=== PATIENT | female | born 1940 | race Caucasian/White ===

== ENCOUNTER 2018-06-14 12:39 | Inpatient (IN) | payer OTHER ==
[~2018-06-14 12:39] MED LIST: NA CHLORIDE 0.9% 1,000 ML ONE; RSI MEDICATION KIT IV ONE
[2018-06-14] MEDS ORDERED: ETOMIDATE 20 MG/10 ML VIAL IV ONE (12:40)
[2018-06-14] MEDS ORDERED: SUCCINYLCHOLINE 20 MG/ML (10 ML) IV ONE (12:40)
[2018-06-14] MEDS ORDERED: LEVALBUTEROL 0.63 MG/3 ML NEB ONE (12:50)
[2018-06-14] MEDS ORDERED: PROPOFOL 1,000 MG/100 ML VIAL IV ONE ×2 (13:08→20:20)
[2018-06-14] MEDS ORDERED: NOREPINEPHRINE 4mg/D5W 250mL 4 MG/250 ML BAG IV ONE (13:09)
[2018-06-14] MEDS ORDERED: D5 0.45 NS 1,000 ML IV ONE ×2 (13:09→23:12)
[2018-06-14 13:29] LABS: Absolute Lymphocytes (CBC) 1.8 K/uL (0.7-4.9); Absolute Neutrophil 10.6 K/uL (1.8-8.0); Basophils % 0.4 % (0-1.3); Eosinophils % 0.5 % (0-4.4); Lymphocytes % 13.4 % (15.3-44.8); MCH 28.6 pg (27.0-35.0); MCV 96.6 fL (80-100); MPV 9.5 fL (7.6-11.3); Monocytes % 7.2 % (3.3-12.3); RBC Red Blood Cell Count 3.41 M/uL (3.86-4.86)
[2018-06-14 13:34] LABS: Protime INR 0.94
[2018-06-14 13:53] LABS: ALT/SGPT 9 U/L (12-78); AST/SGOT 11 U/L (15-37); Albumin 3.2 g/dL (3.4-5.0); Alkaline Phosphatase 49 U/L (45-117); BUN Blood Urea Nitrogen 84 mg/dL (7-18); Bicarbonate 32 mmol/L (21-32); Bilirubin Direct < 0.1 mg/dL (0-0.2); Bilirubin Total 0.2 mg/dL (0.2-1.0); CKMB Creatine Kinase MB 1.2 ng/mL (0.3-3.6); Creatine Phosphokinase 35 U/L (26-192); Glucose Level 136 mg/dL (74-106); Lipase 141 U/L (73-393); Protein, Total 6.6 g/dL (6.4-8.2); Sodium Level 141 mmol/L (136-145); Troponin (Emerg Dept Use Only) < 0.02 ng/mL (0.0-0.045)
[2018-06-14 13:54] LABS: Arterial Blood Carboxyhemoglob 1.9 % (0-1.5); Blood O2 Saturation 98.7 % (92-98.5)
[2018-06-14 13:56] LABS: Potassium 5.6 mmol/L (3.5-5.1)
[2018-06-14] MEDS ORDERED: LORazepam 2 MG/ML VIAL ONE (13:57)
[2018-06-14] MEDS ORDERED: MORPHINE 4 MG/ML SYR ONE (13:58)
--- NOTE | 2018-06-14 14:00 | RAD REPORT ---
EXAM DESCRIPTION: CT - Head Brain Wo Cont - 06/14/2018 1:29 pm CLINICAL HISTORY: Unresponsive, intubated, altered mental status COMPARISON: CT study November 2016 TECHNIQUE: Axial 5 mm thick images of the head were obtained without IV contrast. All CT scans are performed using dose optimization technique as appropriate and may include automated exposure control or mA/KV adjustment according to patient size. FINDINGS: No intracranial hemorrhage, mass, edema or shift of mid-line structures. No acute infarcti on changes seen. Mild atrophy and chronic ischemic changes are present similar to comparison. Ventric les are in proportion to any volume loss. NG tube and endotracheal tube are present only partially im aged. Mastoid air cells and visualized portions of the paranasal sinuses are clear. No acute bony findings. IMPRESSION: Mild atrophy and chronic ischemic change similar to comparison. No acute intracranial fi nding.
--- NOTE | 2018-06-14 14:02 | RAD REPORT ---
EXAM DESCRIPTION: RAD - Chest Single View - 06/14/2018 1:18 pm CLINICAL HISTORY: Intubation, unresponsive COMPARISON: November 2016 TECHNIQUE: AP portable chest image was obtained 1304 hours . FINDINGS: Lung volumes are low. Interstitial markings are prominent but not clearly different. Left costophrenic angle blunting is present but not clearly different. Heart size is normal. Left pleural effusion is likely present, small in size. No pneumothorax. No gross bony abnormality seen. No acute aortic finding. Endotracheal tube is in place. Tip is mid aortic arch 2 cm above the reese. NG tube extends below th e diaphragm. IMPRESSION: Shallow inspiration film showing small left pleural effusion. No significant lung parenc hymal process when compared to 2017. ET tube and NG tube in good position.
[2018-06-14 14:03] LABS: Urine Blood 1+ (NEG); Urine Glucose NEGATIVE (NEG); Urine Protein NEGATIVE (NEG); Urine Specific Gravity 1.025 (1.005-1.030); Urine pH 5.5 (5.0-7.0)
--- NOTE | 2018-06-14 14:31 | ER ---
Nurse's Notes [facility] Name: Chiquis Chaparro Age: 78 yrs Sex: Female : 1940 Arrival Date: 06/14/2018 Time: 12:42 Bed 3 Private MD: Diagnosis: Dehydration;Altered mental status, unspecified;Acute respiratory failure Presentation: 06/14 12:45 Presenting complaint: EMS states: Family reports that pt has been very lethargic for ph the past 3 days, reports that pt receives home health for wound care and the home health nurse recommended that she come to the hospital, pt very drowsy upon EMS arrival w/ snoring respirations, 85% on RA, improved to 100% on NRB, pt oriented to person only, family states that pt is normally A\T\O x 4. Transition of care: patient was not received from another setting of care. Onset of symptoms was June 14, 2018. Risk Assessment: Do you want to hurt yourself or someone else? Patient reports no desire to harm self or others. Initial Sepsis Screen: Does the patient meet any 2 criteria? Mean Arterial Pressure (MAP) < 65. Altered Mental Status. Yes Does the patient have a suspected source of infection? Yes:. Care prior to arrival: None. 12:45 Method Of Arrival: EMS: [facility] ph 12:45 Acuity: EZEQUIEL 2 ph Historical: - Allergies: 13:35 Morphine; ph 13:35 OPIOID ANALGESICS; ph 13:35 tramadol; ph - PMHx: 13:35 aortic valve stenosis; CHF; COPD; Diabetes - NIDDM; Hypertension; Hypothyroidism; ph neuropathy; SVITLANA; Urinary incontinence; - PSHx: 13:35 PACE MAKER; Tubal ligation; LEFT ANKLE SX; ph - Immunization history:: Adult Immunizations unknown. - Social history:: Smoking status: unknown. - Ebola Screening: : No symptoms or risks identified at this time. - Unable to obtain history due to: altered mental status, obtunded state. Screenin:40 Abuse screen: Denies threats or abuse. Denies injuries from another. Nutritional ph screening: No deficits noted. Tuberculosis screening: No symptoms or risk factors identified. Fall Risk None identified. Assessment: 12:50 General: Appears uncomfortable, obese, well groomed, Behavior is drowsy, listless. ph Pain:. Neuro: Level of Consciousness is lethargic, listless, Oriented to person, Speech is slurred. Cardiovascular: Capillary refill is sluggish Rhythm is sinus rhythm. Respiratory: Airway is patent Respiratory effort is shallow, weak, Respiratory pattern is tachypnea Breath sounds are diminished in left lower lobe and right lower lobe. GI: Abdomen is round non-distended, obese, Bowel sounds present X 4 quads. : Murry in place to gravity drainage Urine is clear. 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 12:55 Reassessment: ERP at bedside to place central line and intubate pt. ph 13:22 Reassessment: Pt transported to CT via stretcher with RT, nurse, and lab support service tech. hb 13:41 Reassessment: Pt returned from CT. hb 14:04 Reassessment: Patient appears in no apparent distress at this time. Patient and/or ph family updated on plan of care and expected duration. Pain level reassessed. pt remains intubated/sedated, awaiting lab and radiology results. 14:35 Reassessment: SBP 50s, Levophed started at 5mcg/min. hb 14:40 Reassessment: Dr. Lewis and family at bedside. hb 14:59 Reassessment: Pt remains intubated and sedated. Family at bedside. hb 15:30 Reassessment: RT at bedside, FiO2 reduced to 30%. hb 15:45 Reassessment: Pt remains intubated and sedated, AC 14, TV 550, PEEP 5, FiO2 30%. hb Levophed continues at 5mcg/min, propofol 25mcg/kg/min. Admission ordered, awaiting room assignment at this time. 16:00 Reassessment: ER HOLD charting continued in [facility]. hb 19:00 Reassessment: RECD REPORT FROM KARL RN. 78YO HF P/W DECREASED LEVEL OF CONSCIOUSNESS AND bp RESPIRATORY FAILURE. PT ON VENT A/C 14, TV 550, PEEP 5, FIO2 35%, ETT 7.5 \T\ 25CM. R FEM CVC IN PLACE, LEVOPHED \T\ 3MCG, PROPOFOL \T\ 20MCG, D51/2NS \T\ 100. 16FR NGT AND HOME MURRY IN PLACE. 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 REPEAT TROP DUE AT 2100. PT CURRENTLY ICU HOLD, SEE [facility] FOR FURTHER DOCUMENTATION. 06/15 03:45 Reassessment: REPORT TO EDGARDO SOLITARIO. PT TRANSPORTED VIA STRETCHER, REPORT TO EDGARDO SOLITARIO. SEE bp [facility] FOR PREVIOUS DOCUMENTATION. Vital Signs: 06/14 12:45 BP 96 / 39; Pulse 89; Resp 22; Temp 97.6(A); Pulse Ox 91% on R/A; ph 13:00 BP 115 / 51; Pulse 89; Resp 16; Pulse Ox 100% on 15 lpm ETT ambu; ph 13:15 BP 105 / 71; Pulse 87; Resp 16; Pulse Ox 100% on 15 lpm ETT ambu; ph 13:30 BP 168 / 154; Pulse 87; Resp 18; Pulse Ox 100% on 40% FiO2 ETT vent; ph 13:47 BP 142 / 128; Pulse 83; Resp 18; Pulse Ox 99% on 40% FiO2 ETT vent; Weight 79.38 kg; ph 14:10 BP 150 / 110; Pulse 80; Resp 16; Pulse Ox 100% on 40% FiO2 ETT vent; ph 14:30 BP 68 / 50; Pulse 82; Resp 18; Pulse Ox 100% on 40% FiO2 ETT vent; ph 14:45 BP 91 / 74; Pulse 94; Resp 16; Pulse Ox 100% on 40% FiO2 ETT vent; ph 15:00 BP 101 / 62; Pulse 97; Resp 15; Pulse Ox 100% on 40% FiO2 ETT vent; hb 15:15 BP 107 / 87; Pulse 99; hb 15:30 BP 100 / 53; Pulse 98; hb 15:45 BP 107 / 87; Pulse 99; hb 16:00 BP 122 / 77; Pulse 101; Resp 16; Pulse Ox 100% on 30% FiO2 ETT vent; hb Vitals: 13:47 Cardiac Rhythm Assessment Sinus rhythm. ph Hemanth Coma Score: 12:45 Eye Response: to pain(2). Verbal Response: incomprehensible(2). Motor Response: ph none(1). Total: 5. ED Course: 12:42 Patient arrived in ED. em 12:56 Bonilla Salvador MD is Attending Physician. rn 12:57 Assisted provider with central line placement. Set up central line tray. Triple lumen ph line placed in right femoral. Line placed by Bonilla Salvador MD Placement verified by CXR, blood return, Dressed with Tegaderm, Blood was collected. Patient tolerated well. Before procedure, did Practitioner(s) obtain informed consent? No. Patient \T\ family education about procedure, CLABSI prevention and S/S of infection? No. Time-out/Briefing performed prior to start of procedure? Yes. Was handwashing/sanitizing done immediately prior to procedure? Yes. Was patient positioned to in a way to prevent air embolism? Yes. Was procedure site sterilized? Yes, with chlorhexidine. Was the site allowed to dry? Yes. Was local anesthetic and/or sedation utilized? Yes. During the procedure, did the Practitioner(s) maintain a sterile field? Yes. Were unused ports clamped during insertion? Yes. Was a 2nd qualified MD obtained after 3 unsuccessful insertion attempts? No. Was blood aspirated from each lumen? Yes. After the procedure, did the Practitioner(s) clean the site and apply a sterile dressing? Yes. Assisted provider with intubation using 7.5 mm ETT via oral route. ET tube secured at 25cm at the lips. Set up intubation tray. Intubated by Bonilla Salvador MD Placement verified by CXR, CO2 detector w/ + color change, auscultating bilateral breath sounds, Patient tolerated well. 13:00 Meliza Fontaine RN is Primary Nurse. ph 13:00 NGT: inserted 16 Fr. via right nare. verified placement of air over stomach, verified ph return of gastric contents, to intermittent suction. Returned gastric contents. 13:17 Chest Single View XRAY In Process Unspecified. EDMS 13:28 CT completed. Patient moved to CT via stretcher. Patient moved back from CT. cw1 13:29 CT Head Brain wo Cont In Process Unspecified. EDMS 13:33 Triage completed. ph 13:36 Arm band placed on. ph 13:49 Patient has correct armband on for positive identification. ph 14:30 Eduar Lewis DO is Hospitalizing Provider. rn 16:00 Patient admitted, IV remains in place. hb 19:19 Primary Nurse role handed off by Meliza Fontaine, KASSI bp 19:19 Bret Eric, RN is Primary Nurse. bp Administered Medications: 12:50 Drug: Xopenex (3) 1.25 mg Route: Inhalation; ph 13:45 Follow up: Response: No adverse reaction hb 12:53 Drug: NS 0.9% 1000 ml Route: IV; Rate: 1000 ml; Site: right femoral; ph 14:00 Follow up: Response: No adverse reaction; IV Status: Completed infusion hb 12:55 Drug: Etomidate 20 mg Route: IVP; Site: right femoral; ph 13:35 Follow up: Response: No adverse reaction hb 12:56 Drug: Succinylcholine 100 mg Route: IVP; Site: right femoral; ph 13:35 Follow up: Response: No adverse reaction hb 13:15 Drug: Propofol 5 mcg/kg/min Route: IV; Rate: calculated rate; Site: right femoral; ph 14:00 Follow up: Response: No adverse reaction hb 16:00 Follow up: Response: No adverse reaction; IV Status: Infusion continued upon admission hb 13:20 Drug: D5-1/2 NS 1000 ml Route: IV; Rate: 100 ml/hr; Site: right femoral; ph 16:00 Follow up: Response: No adverse reaction; IV Status: Infusion continued upon admission hb 13:58 Drug: morphine 4 mg Route: IVP; Site: right femoral; ph 14:30 Follow up: Response: No adverse reaction hb 13:59 Drug: Ativan 2 mg Route: IVP; Site: right antecubital; ph 14:30 Follow up: Response: No adverse reaction hb 14:35 Drug: Levophed (4 mg/250 mL D5W 4 mcg/min Route: IV; Rate: calculated rate; Site: right ph femoral; 15:00 Follow up: Response: No adverse reaction; Blood pressure is elevated hb 16:00 Follow up: Response: No adverse reaction; IV Status: Infusion continued upon admission hb Ventilator: 14:10 Fi02: 40%; Rate: 14min; T.V.: 550ml; Peep: 5cm; ET tube: 7.5 mm (Oral); ph Outcome: 14:30 Decision to Hospitalize by Provider. rn 16:00 Admitted to ICU hb 16:00 critical 16:00 Instructed on the need for admit, Demonstrated understanding of Family demonstrated understanding of need to admit 06/15 03:45 Admitted to ICU accompanied by nurse, accompanied by tech, family with patient, via bp stretcher, room 7, with oxygen, on monitor, with chart, Report called to EDGARDO SOLITARIO 04:11 Patient left the ED. bp Signatures: Dispatcher [employer] EDMS Harper, Braeden, BANQUET LEAD BANQUET LEAD em Bonilla Salvador MD MD rn Woodley, Crystal cw1 Meliza Fontaine RN RN ph Mary Bates, KASSI RN hb Bret Eric RN RN bp Corrections: (The following items were deleted from the chart) 06/14 13:52 13:47 BP 142 / 128; Pulse 83bpm; Resp 18bpm; Pulse Ox 99% FiO2 40% vent; ph ph 15:04 14:32 Reassessment: Dr. Lewis and family at bedside hb hb
--- NOTE | 2018-06-14 14:31 | EDPHYS ---
Physician Documentation [facility] Name: Chiquis Chaparro Age: 78 yrs Sex: Female : 1940 Arrival Date: 06/14/2018 Time: 12:42 Bed 3 Private MD: ED Physician Bonilla Salvador HPI: 06/14 14:08 This 78 yrs old Female presents to ER via EMS with complaints of Altered rn Mental Status. 14:08 The patient presents with decreased mental status, decreased responsiveness. Onset: The rn symptoms/episode began/occurred at an unknown time. Possible causes: unknown. Associated signs and symptoms: Pertinent positives: confusion. Current symptoms: In the emergency department the patient's symptoms are unchanged from the initial presentation. It is unknown whether or not the patient has had similar symptoms in the past. Per EMS, family called 911 for decreased responsiveness, no information given by patient, was unresponsive, EMS gave her GCS 9, responsive somewhat to pain but not speaking, has home health that was by this morning, told family that she didn't look good, family called other familymembers over to house to "say goodbye", then called 911 a few hours later. . Historical: - Allergies: 13:35 Morphine; ph 13:35 OPIOID ANALGESICS; ph 13:35 tramadol; ph - PMHx: 13:35 aortic valve stenosis; CHF; COPD; Diabetes - NIDDM; Hypertension; Hypothyroidism; ph neuropathy; SVITLANA; Urinary incontinence; - PSHx: 13:35 PACE MAKER; Tubal ligation; LEFT ANKLE SX; ph - Immunization history:: Adult Immunizations unknown. - Social history:: Smoking status: unknown. - Ebola Screening: : No symptoms or risks identified at this time. - Unable to obtain history due to: altered mental status, obtunded state. ROS: 14:08 Unable to obtain ROS due to altered mental status, obtunded state. rn Exam: 14:08 Constitutional: Overweight female, sonorous respirations, opens eyes but does not make rn sense, withdraws all 4 ext from pain. Head/Face: Normocephalic, atraumatic. Eyes: Pupils equal round and reactive to light, extra-ocular motions intact. Lids and lashes normal. Conjunctiva and sclera are non-icteric and not injected. Cornea within normal limits. Periorbital areas with no swelling, redness, or edema. Neck: Trachea midline, no thyromegaly or masses palpated, and no cervical lymphadenopathy. Supple, full range of motion without nuchal rigidity, or vertebral point tenderness. No Meningismus. Cardiovascular: Regular rate and rhythm with a normal S1 and S2. No gallops, murmurs, or rubs. Normal PMI, no JVD. No pulse deficits. Respiratory: + diminished bilateral breath sounds, sonorous Abdomen/GI: soft, non-tender MS/ Extremity: Pulses equal, no cyanosis. Neurovascular intact. Full, normal range of motion. Equal circumference. Neuro: Somnolent, sleeps without stimulation, GCS 8. Vital Signs: 12:45 BP 96 / 39; Pulse 89; Resp 22; Temp 97.6(A); Pulse Ox 91% on R/A; ph 13:00 BP 115 / 51; Pulse 89; Resp 16; Pulse Ox 100% on 15 lpm ETT ambu; ph 13:15 BP 105 / 71; Pulse 87; Resp 16; Pulse Ox 100% on 15 lpm ETT ambu; ph 13:30 BP 168 / 154; Pulse 87; Resp 18; Pulse Ox 100% on 40% FiO2 ETT vent; ph 13:47 BP 142 / 128; Pulse 83; Resp 18; Pulse Ox 99% on 40% FiO2 ETT vent; Weight 79.38 kg; ph 14:10 BP 150 / 110; Pulse 80; Resp 16; Pulse Ox 100% on 40% FiO2 ETT vent; ph 14:30 BP 68 / 50; Pulse 82; Resp 18; Pulse Ox 100% on 40% FiO2 ETT vent; ph 14:45 BP 91 / 74; Pulse 94; Resp 16; Pulse Ox 100% on 40% FiO2 ETT vent; ph 15:00 BP 101 / 62; Pulse 97; Resp 15; Pulse Ox 100% on 40% FiO2 ETT vent; hb 15:15 BP 107 / 87; Pulse 99; hb 15:30 BP 100 / 53; Pulse 98; hb 15:45 BP 107 / 87; Pulse 99; hb 16:00 BP 122 / 77; Pulse 101; Resp 16; Pulse Ox 100% on 30% FiO2 ETT vent; hb Gateway Coma Score: 12:45 Eye Response: to pain(2). Verbal Response: incomprehensible(2). Motor Response: ph none(1). Total: 5. Ventilator: 14:10 Fi02: 40%; Rate: 14min; T.V.: 550ml; Peep: 5cm; ET tube: 7.5 mm (Oral); ph Procedures: 13:00 Intubation: Ventilated with 100% NRB prior to procedure. O2 saturation prior to barrel turner was 92 %. Intubated orally using # 4 Catia blade with 7.5 mm ETT. was successful on first attempt. Tube secured with ETT parrish at right side of mouth measured 23 cm at lip. Placement verified by CXR, CO2 detector with (+) color change, auscultating bilateral breath sounds, O2 saturation after procedure was 98 %. Patient tolerated. Central Line: the site was prepped with Betadine, in sterile fashion, a triple lumen catheter was inserted, in the right in 1 attempts. placement was verified, by blood return, the site was dressed with Tegaderm, using sterile technique, the patient tolerated the procedure, well. MDM: 12:57 Patient medically screened. rn 14:28 Differential Diagnosis: CVA, electrolyte abnormality, hypoglycemia, intracranial bleed, rn pneumonia, sepsis, TIA, UTI, volume depletion. Data reviewed: vital signs, nurses notes, lab test result(s), EKG, radiologic studies, CT scan, plain films, and as a result, I will admit patient. Counseling: I had a detailed discussion with the patient and/or guardian regarding: the historical points, exam findings, and any diagnostic results supporting the discharge/admit diagnosis, lab results, radiology results, the need for further work-up and treatment in the hospital. Response to treatment: the patient's symptoms have mildly improved after treatment, and as a result, I will admit patient. Admission orders: after a detailed discussion of the patient's condition and case, the admit orders are written by me. ED course: Pt with moderate dehydration, AMS, no acute findings on CXR or ct head, 1+ leukocytes, will admit to ICU for respiratory failure and AMS with dehydration to Dr. Lewis. . 06/14 12:58 Order name: Urine Culture rn 06/14 12:58 Order name: Urine Microscopic Only rn 06/14 12:58 Order name: Basic Metabolic Panel; Complete Time: 14:02 rn 06/14 12:58 Order name: Blood Culture Adult (2) rn 06/14 12:58 Order name: CBC with Diff; Complete Time: 14:02 rn 06/14 12:58 Order name: Ckmb; Complete Time: 14:02 rn 06/14 12:58 Order name: CPK; Complete Time: 14:02 rn 06/14 12:58 Order name: Lactate; Complete Time: 13:46 rn 06/14 12:58 Order name: LFT's; Complete Time: 14:02 rn 06/14 12:58 Order name: Lipase; Complete Time: 14:02 rn 06/14 12:58 Order name: Procalcitonin; Complete Time: 14:02 rn 06/14 12:58 Order name: Protime (+inr); Complete Time: 13:46 rn 06/14 12:58 Order name: Ptt, Activated; Complete Time: 13:46 rn 06/14 12:58 Order name: Troponin (emerg Dept Use Only); Complete Time: 14:02 rn 06/14 12:58 Order name: ABG; Complete Time: 14:02 rn 06/14 12:58 Order name: AMMONIA; Complete Time: 13:46 rn 06/14 12:58 Order name: Ketone, Serum; Complete Time: 14:02 rn 06/14 13:53 Order name: Urine Dipstick--Ancillary (enter results); Complete Time: 14:03 06/14 15:35 Order name: Ammonia EDIA 06/14 15:35 Order name: CKMB Creatine Kinase MB EDIA 06/14 15:35 Order name: Creatine Phosphokinase EDIA 06/14 15:35 Order name: Sputum Culture EDIA 06/14 15:36 Order name: Troponin I EDIA 06/14 15:36 Order name: ABG Arterial Blood Gas EDIA 06/14 15:37 Order name: Cortisol EDIA 06/14 15:37 Order name: Cortisol EDIA 06/14 17:11 Order name: Glucose, Ancillary Testing EDIA 06/14 18:17 Order name: Potassium EDIA 06/14 20:30 Order name: Glucose, Ancillary Testing EDIA 06/14 21:23 Order name: Basic Metabolic Panel EDIA 06/14 12:58 Order name: Chest Single View XRAY; Complete Time: 14:03 rn 06/14 12:58 Order name: Accucheck; Complete Time: 13:55 rn 06/14 12:58 Order name: Cardiac monitoring; Complete Time: 13:54 rn 06/14 12:58 Order name: EKG - Nurse/Tech; Complete Time: 14:48 rn 06/14 12:58 Order name: IV Saline Lock - Large Bore; Complete Time: 13:54 rn 06/14 12:58 Order name: Labs collected and sent; Complete Time: 13:54 rn 06/14 12:58 Order name: O2 Per Protocol; Complete Time: 13:54 rn 06/14 12:58 Order name: O2 Sat Monitoring; Complete Time: 13:54 rn 06/14 12:58 Order name: Urine Dipstick-Ancillary (obtain specimen); Complete Time: 13:55 rn 06/14 12:58 Order name: CT Head Brain wo Cont; Complete Time: 14:02 rn 06/14 15:36 Order name: CONS Pharmacy Consult EDIA 06/14 15:36 Order name: CONS [facility] Cons EDIA 06/14 15:36 Order name: CONS Physician Consult EDIA 06/14 15:36 Order name: CONS Physician Consult EDIA 06/14 15:36 Order name: Respiratory Therapy Consult EDIA 06/14 15:36 Order name: NPO EDIA 06/14 21:42 Order name: Glucose, Ancillary Testing EDIA 06/15 00:10 Order name: Glucose, Ancillary Testing EDIA Administered Medications: 12:50 Drug: Xopenex (3) 1.25 mg Route: Inhalation; ph 13:45 Follow up: Response: No adverse reaction hb 12:53 Drug: NS 0.9% 1000 ml Route: IV; Rate: 1000 ml; Site: right femoral; ph 14:00 Follow up: Response: No adverse reaction; IV Status: Completed infusion hb 12:55 Drug: Etomidate 20 mg Route: IVP; Site: right femoral; ph 13:35 Follow up: Response: No adverse reaction hb 12:56 Drug: Succinylcholine 100 mg Route: IVP; Site: right femoral; ph 13:35 Follow up: Response: No adverse reaction hb 13:15 Drug: Propofol 5 mcg/kg/min Route: IV; Rate: calculated rate; Site: right femoral; ph 14:00 Follow up: Response: No adverse reaction hb 16:00 Follow up: Response: No adverse reaction; IV Status: Infusion continued upon admission hb 13:20 Drug: D5-1/2 NS 1000 ml Route: IV; Rate: 100 ml/hr; Site: right femoral; ph 16:00 Follow up: Response: No adverse reaction; IV Status: Infusion continued upon admission hb 13:58 Drug: morphine 4 mg Route: IVP; Site: right femoral; ph 14:30 Follow up: Response: No adverse reaction hb 13:59 Drug: Ativan 2 mg Route: IVP; Site: right antecubital; ph 14:30 Follow up: Response: No adverse reaction hb 14:35 Drug: Levophed (4 mg/250 mL D5W 4 mcg/min Route: IV; Rate: calculated rate; Site: right ph femoral; 15:00 Follow up: Response: No adverse reaction; Blood pressure is elevated hb 16:00 Follow up: Response: No adverse reaction; IV Status: Infusion continued upon admission hb Disposition: 14:30 Critical Care:. rn Disposition: 06/14/18 14:30 Hospitalization ordered by Eduar Lewis for Inpatient Admission. Preliminary diagnosis are Dehydration, Altered mental status, unspecified, Acute respiratory failure. - Bed requested for Intensive Care Unit. - Status is Inpatient Admission. bp - Condition is Fair. - Problem is new. - Symptoms have improved. UTI on Admission? Yes Critical care time excluding procedures: 14:30 Critical care time: Bedside Care: 25 minutes, Consultation: 5 minutes, Family rn Intervention: 5 minutes. Total time: 35 minutes Signatures: Dispatcher [employer] EDWendy Collier RN RN kl Bonilla Salvador MD MD rn Smirch, Shelby, RN RN Meliza Fontaine RN RN ph Peltier, Brian, RN RN Mary Bates RN Corrections: (The following items were deleted from the chart) 16:22 14:30 Hospitalization Ordered by Eduar Lewis DO for Inpatient Admission. Preliminary diagnosis is Dehydration; Altered mental status, unspecified; Acute respiratory failure. Bed requested for Intensive Care Unit. Status is Inpatient Admission. Condition is Fair. Problem is new. Symptoms have improved. UTI on Admission? Yes. rn 06/15 02:29 09 16:22 06/14/2018 14:30 Hospitalization Ordered by Eduar Lewis DO for Inpatient Admission. Preliminary diagnosis is Dehydration; Altered mental status, unspecified; Acute respiratory failure. Bed requested for [facility] ER HOLD. Status is Inpatient Admission. Condition is Fair. Problem is new. Symptoms have improved. UTI on Admission? Yes. ss 06/15 04:11 02:29 06/14/2018 14:30 Hospitalization Ordered by Eduar Lewis DO for Inpatient bp Admission. Preliminary diagnosis is Dehydration; Altered mental status, unspecified; Acute respiratory failure. Bed requested for Intensive Care Unit. Status is Inpatient Admission. Condition is Fair. Problem is new. Symptoms have improved. UTI on Admission? Yes. kl
[2018-06-14] MEDS ORDERED: ALBUTEROL 2.5 MG/3 ML NEB SOL NEB PRN (15:22)
[2018-06-14] MEDS ORDERED: NOREPINEPHRINE 4 MG in D5W 250 ML IV PRN (15:22)
[2018-06-14] MEDS ORDERED: ONDANSETRON 4 MG/2 ML VIAL IV PRN (15:22)
[2018-06-14] MEDS ORDERED: ACETAMINOPHEN 500 MG TAB PO PRN (15:22)
[2018-06-14] MEDS ORDERED: ACETAMINOPHEN 650MG/RECT SUPP PR PRN (15:22)
[2018-06-14] MEDS ORDERED: IPRATROPIUM BROM 0.5MG/2.5ML NEB PRN (15:22)
[2018-06-14] MEDS ORDERED: SODIUM CHLORIDE 0.9% 10ML INJ IV PRN (15:22)
[2018-06-14 15:30] LABS: Urine Bacteria <20 /HPF (<20)
[2018-06-14 15:31] LABS: Urine Culture Reflex Order NOT NEEDED; Urine Yeast FEW (NONE SEEN)
[2018-06-14] MEDS: D5 0.45 NS 1,000 ML IV SCH (16:00)
[2018-06-14] MEDS: ENOXAPARIN 30 MG/0.3 ML SQ SCH (16:00)
[2018-06-14] MEDS ORDERED: HYDROCORTISONE SUC 100 MG INJ IV ONE (16:00)
[2018-06-14] MEDS: INSULIN -REGULAR HUMAN 50 UNIT/0.5 ML ML SQ SCH ×2 (16:30→20:42)
--- NOTE | 2018-06-14 16:40 | P.HP ---
Certification for Inpatient Patient admitted to: Inpatient With expected LOS: >2 Midnights Patient will require the following post-hospital care: Other Practitioner: I am a practitioner with admitting privileges, knowledge of patient current condition, hospital course, and medical plan of care. Services: Services provided to patient in accordance with Admission requirements found in Title 42 Section 412.3 of the Code of Federal Regulations Patient History Date of Service: 06/14/18 Primary Care Provider: Dr. Blackwell([facility]); Pulm-Dr. Rivera; Card- Dr. Segal Reason for admission: Altered mental status History of Present Illness: 78-year-old female presented emergency room with altered mental status.Most of the information came from the family and ER physician. Patient has complicating history of CHF, COPD, diabetes, hypertension, aortic valve replacement, hypothyroidism, urinary incontinence with chronic catheter. For the past year patient has been hospitalized multiple times. Last hospitalization was for acute respiratory failure secondary to CHF and COPD. Over the past several months the patient has been on hospice. Over the last several days. Family has noted that the patient has been declining health. Family reports that she is not eating well. She has had poor oral intake. Patient has been sleeping a great deal. Family reports that she has an ulcer to the right buttocks region. Family had hospice evaluate patient. Family told hospice nurse their concerns. They also told the nurse that the patient was full code. Therefore patient came to the ER for further evaluation. In the ER she was found to be hypoxic. Patient was intubated. She was initially hypotensive with a blood pressure of 70/40. Patient was given IV fluids. Patient was also started on vasopressor therapy. Patient is currently intubated and sedated. On lab white count 13.6, hemoglobin 9.8. Sodium 141, potassium 5.6. Bicarb 32. BUN of 84, creatinine 1.6 with a GFR 31. Glucose 136. Lactic acid within normal range. Pro calcitonin within normal range. Urinalysis showed some leukocytes. Acetone negative. Blood gases showed a pH is 7.3 with a PC of 253 and a PO2 of 116. X-ray shows a left small pleural effusion. Patient admitted for further treatment. When I saw the patient the ER, patient appeared stable. She is intubated and sedated. Family at bedside. As mentioned above patient has been declining in health over the past several months to a year. Patient had been transition to hospice. Patient has been bed-bound for quite some time. There is some confusion on advanced directives. Medical power of [place] attorney reported that the patient is full code. Allergies tramadol Allergy (Verified 11/10/16 09:03) Shortness of breath morphine Adverse Reaction (Verified 11/08/12 17:31) stops heart OPIOID ANALGESICS Allergy (Uncoded 11/10/16 09:04) Shortness of breath Home medications list reviewed: Yes Home Medications: Amlodipine [Norvasc] 10 mg PO DAILY 11/10/16 Ammonium Lactate [Samira-Hydrolac] 1 siva TP BID 11/10/16 Aspirin [Aspirin EC 325 MG] 325 mg PO DAILY 11/10/16 Carvedilol [Coreg] 25 mg PO BID 11/10/16 Cetirizine HCl [Zyrtec] 10 mg PO DAILYPRN PRN 11/10/16 Cholecalciferol (Vitamin D3) [Vitamin D3] 5,000 unit PO DAILY 11/10/16 Colestipol HCl [Colestid] 2,000 mg PO DAILY 11/10/16 Fluocinonide [Lidex] 1 siva TP BID 11/10/16 Fluticasone [Flonase 50mcg Nasal [place]] 2 sprays NS DAILY 11/10/16 Furosemide [Lasix] 40 mg PO BIDL 11/10/16 Gabapentin [Neurontin] 300 mg PO BID 11/10/16 Insulin Detemir [Levemir*] 14 unit SQ BID 11/10/16 Isosorbide Mononitrate [Isosorbide Mononitrate ER] 60 mg PO DAILY 11/10/16 Levothyroxine [Synthroid] 88 mcg PO [id number] 11/10/16 Losartan Potassium [Cozaar] 100 mg PO DAILY 11/10/16 Ranolazine [Ranexa] 500 mg PO BID 11/10/16 Simvastatin [Zocor] 40 mg PO BEDTIME 11/10/16 Sitagliptin Phosphate [Januvia] 25 mg PO DAILYPRN PRN 11/10/16 - Past Medical/Surgical History Diabetic: Yes -: CHF, diastolic dysfunction, end-stage -: Hypothyroidism -: Diabetes mellitus type 2, insulin-dependent -: COPD, end-stage disease, oxygen/steroid dependent -: HTN -: Urinary incontinence, chronic indwelling catheter -: Diabetic neuropathy -: Obstructive sleep apnea -: History aortic stenosis status post aortic valve replacement-bovine -: Tubal ligation -: Aortic valve replacement-bovine -: Pacemaker Psychosocial/ Personal History: Patient is bed bound. Patient has multiple family members. - Family History Family History: Reviewed- Non-Contributory - Social History Smoking Status: Never smoker Alcohol use: No CD- Drugs: No Caffeine use: Yes Place of Residence: Home Review of Systems General: Weakness, Malaise, As per HPI Eyes: Unremarkable ENT: Unremarkable Respiratory: Shortness of Breath, As per HPI Cardiovascular: Paroxysmal Noc. Dyspnea, As per HPI Gastrointestinal: As per HPI Genitourinary: As per HPI Musculoskeletal: As per HPI Integumentary: As per HPI (Chronic ulcer to the right buttocks) Neurological: Weakness, As per HPI Lymphatics: Unremarkable Physical Examination - Physical Exam General: Other (Patient intubated and sedated) HEENT: Atraumatic, Normocephalic, Other (Dry mucous membranes) Neck: Supple Respiratory: Clear to auscultation bilaterally, Other (Endotracheal tube in place) Cardiovascular: Normal pulses, Regular rate/rhythm Gastrointestinal: Normal bowel sounds, Non-distended, No rebound, No guarding Musculoskeletal: No erythema, No tenderness, No warmth Integumentary: No erythema, No warmth, No cyanosis Neurological: Other (Patient intubated and sedated.) Urinary: Cedillo catheter - Studies Laboratory Data (last 24 hrs) 06/14/18 13:00: PT 11.1, INR 0.94, APTT 34.5 06/14/18 13:00: WBC 13.6 H, Hgb 9.8 L, Hct 33.0 L, Plt Count 234 06/14/18 13:00: Sodium 141, Potassium 5.6 H*, BUN 84 H, Creatinine 1.60 H, Glucose 136 H, Total Bilirubin 0.2, AST 11 L, ALT 9 L, Alkaline Phosphatase 49, Lipase 141 Assessment and Plan - Advance Directives Does patient have a Living Will: Yes Does patient have a Durable POA for Healthcare: Yes - Code Status/Comfort Care Code Status Assessed: Yes (Patient full code. This was discussed with medical power of [place] attorney) Physician Review Additional Text: Impression: Acute encephalopathy likely toxic. Suspect sepsis with bacteremia likely related to UTI with chronic indwelling catheter verses chronic ulcer to the right buttocks region. Acute on chronic respiratory failure with noted hypoxia currently intubated with history of diastolic CHF, end-stage COPD, and obstructive sleep apnea. Acute COPD exacerbation with COPD, oxygen/steroid dependent Acute on chronic CHF, diastolic dysfunction CAD History of the aortic stenosis status post history of aortic valve replacement- bovine Hypotension likely related to sepsis and acute on chronic respiratory failure requiring vasopressor therapy Hyperkalemia Acute on chronic renal disease Anemia likely of chronic disease Diabetes mellitus type 2, insulin-dependent History of hypertension Hypothyroidism Urinary incontinence with chronic indwelling catheter with history of recurrent complicated UTIs Malnutrition, severe Right buttocks ulcer, chronic Obstructive sleep apnea likely with hypoventilation obesity syndrome Morbid obesity Failure to thrive recently on hospice Plan: Patient will be admitted to ICU. Patient currently intubated and sedated. Will continue with vent protocol. Pulmonology has been consulted. Patient with acute encephalopathy likely multifactorial. Will need to rule out sepsis with bacteremia. Patient with history of recurrent complicated UTI with chronic indwelling catheter. Patient also has an ulcer to the right buttocks region. Will need to obtain blood, urine and wound culture. Wound consultation will be arrange for management of wound. Patient currently on vasopressor therapy due to hypotension. Will wean off Levophed. Patient will be started on COPD medication and IV steroids for acute COPD exacerbation. Patient oxygen/steroid dependent. Will provide IV steroids. Patient with history of aortic valve replacement-bovine. Cardiology consulted to further assess. Will check echocardiogram. Patient with acute on chronic renal failure with hyperkalemia. Will repeat potassium level. Will continue with IV fluids. Nephrology consulted to further assess. Patient with diabetes. Will monitor with sliding scale. Will need to obtain home medications. Patient started on IV antibiotic therapy. Pharmacy to monitor and adjust. Patient recently on hospice. She has been declining in health over the past several months. Medical power of [place] attorney and family members present. Advanced directives address in detail. Medical power of [place] attorney reports patient is full code. There appears to be some confusion with family about the understanding about hospice. They understand the patient has chronic medical problems and has been declining in health over the past several months. Will need to readdress advanced directives if condition continues to decline. Patient may require long-term acute care facility verses skilled placement. Will need to further discuss with case management tomorrow and with the team of physicians. Time Spent Managing Pts Care (In Minutes): 75
[2018-06-14] MEDS: METHYLPREDNISOLONE 125 MG INJ IV SCH (18:00)
[2018-06-14] MEDS ORDERED: ENOXAPARIN 30 MG/0.3 ML SQ ONE (18:29)
[2018-06-14] MEDS ORDERED: METHYLPREDNISOLONE 125 MG INJ ONE (18:29)
[2018-06-14] MEDS ORDERED: HYDROCORTISONE SUC 100 MG INJ ONE (18:29)
[2018-06-14] MEDS ORDERED: MIDAZOLAM HCL 2 MG/2 ML INJ IV PRN (19:04)
[2018-06-14] MEDS ORDERED: PROPOFOL 1,000 MG/100 ML VIAL IV PRN (19:04)
[2018-06-14] MEDS ORDERED: HALOPERIDOL LACT 5 MG/ML INJ IV PRN (19:04)
[2018-06-14] MEDS ORDERED: NA CHLORIDE 0.9% 250 ML IV PRN (19:04)
[2018-06-14 19:46] LABS: Arterial Blood Carboxyhemoglob 1.8 % (0-1.5); Blood Gas Oxyhemoglobin 94.8 % (94-97); Blood O2 Saturation 97.3 % (92-98.5)
[2018-06-14] MEDS ORDERED: Meropenem 1 GM/100 ML BAG ONE (20:20)
[2018-06-14] MEDS ORDERED: NA CHLORIDE 0.9% 500 ML ONE (20:28)
[2018-06-14] MEDS ORDERED: VANCOMYCIN 1 GM/VIAL ONE (20:28)
[2018-06-14] MEDS ORDERED: INSULIN -REGULAR HUMAN 50 UNIT/0.5 ML ML ONE (20:41)
[2018-06-14] MEDS: Meropenem 1,000 MG in NA CHLORIDE 0.9% 100 ML IV SCH (20:51)
[2018-06-14] MEDS: FAMOTIDINE 20 MG/2 ML VIAL IV SCH (20:51)
[2018-06-14 20:56] LABS: CKMB Creatine Kinase MB 1.2 ng/mL (0.3-3.6); Troponin I 0.02 ng/mL (0.0-0.045)
[2018-06-14] MEDS ORDERED: Meropenem 1000 MG/VIAL IV SCH (21:00)
[2018-06-14] MEDS ORDERED: VANCOMYCIN 1.5 GM in NA CHLORIDE 0.9% 500 ML IVPB SCH (21:00)
[2018-06-14] MEDS ORDERED: VANCOMYCIN 2 GM in NA CHLORIDE 0.9% 500 ML IVPB ONE (21:00)
[2018-06-14 21:23] LABS: Potassium 4.5 mmol/L (3.5-5.1)
[2018-06-15] MEDS ORDERED: METHYLPREDNISOLONE 125 MG INJ ONE (01:39)
[2018-06-15] MEDS: D5 0.45 NS 1,000 ML IV SCH (02:00)
[2018-06-15 04:53] LABS: Arterial Blood Carboxyhemoglob 1.6 % (0-1.5); Blood Gas Oxyhemoglobin 91.8 % (94-97); Blood O2 Saturation 93.9 % (92-98.5)
[2018-06-15 05:51] LABS: Absolute Lymphocytes (CBC) 0.5 K/uL (0.7-4.9); Absolute Monocytes 0.1 K/uL (0.1-1.3); Absolute Neutrophil 8.1 K/uL (1.8-8.0); Hematocrit 30.8 % (36.0-45.0); Lymphocytes % 5.4 % (15.3-44.8); MCH 29.4 pg (27.0-35.0); MCV 91.3 fL (80-100); MPV 9.4 fL (7.6-11.3); Monocytes % 0.9 % (3.3-12.3); RBC Red Blood Cell Count 3.37 M/uL (3.86-4.86)
[2018-06-15] MEDS: METHYLPREDNISOLONE 125 MG INJ IV SCH ×4 (05:58→17:10)
[2018-06-15 06:00] LABS: BUN Blood Urea Nitrogen 68 mg/dL (7-18); Bicarbonate 25 mmol/L (21-32); CKMB Creatine Kinase MB < 1.0 ng/mL (0.3-3.6); Creatine Phosphokinase 36 U/L (26-192); Glucose Level 324 mg/dL (74-106); HDL Cholesterol 33 mg/dL (40-60); LDL Cholesterol, Calculated 74 (<130); Magnesium 2.1 mg/dL (1.8-2.4); Sodium Level 143 mmol/L (136-145); Thyroid Stimulating Hormone 0.272 uIU/mL (0.360-3.740); Troponin I 0.02 ng/mL (0.0-0.045)
[2018-06-15] MEDS: FENTANYL CITR 100 MCG/2 ML IV PRN ×3 (06:13→17:10)
--- NOTE | 2018-06-15 06:49 | RAD REPORT ---
EXAM DESCRIPTION: RAD - Chest Single View - 06/15/2018 6:39 am CLINICAL HISTORY: Intubation, respiratory distress COMPARISON: June 14 TECHNIQUE: AP portable chest image was obtained 0624 hours . FINDINGS: Endotracheal tube and NG tube remain in good position. Pacemaker is in place. No new tube or line. Baseline prominent interstitial lung pattern is present. No new or progressive lung parenchymal proce ss. Left base is better aerated. Left costophrenic angle blunting has improved. Heart and vasculature are normal. No pneumothorax or enlarging pleural fluid. No gross bony abnormality seen. No acute aor tic findings suspected. IMPRESSION: Pleural fluid and patchy left base opacification have improved. No new or progressive lung parenchymal process.
[2018-06-15] MEDS: ARFORMOTEROL TARTRATE 15 MCG/2 ML VIAL.NEB NEB SCH ×2 (08:36→20:49)
--- NOTE | 2018-06-15 08:44 | P.CNS ---
Date of Consult: 06/15/18 Primary Care Provider: Dr. Blackwell([facility]); Pulm-Dr. Rivera; Card- Dr. Segal Chief Complaint: Respiratory failure History of Present Illness: Patient is 78 years of age well known to me with a history of diastolic dysfunction admitted with altered mental status declining health she was in hospice care that was revoked poor oral intake also has a decubitus ulcer is hypoxic intubated and transferred to the ICU patient has had recurrent hospital admissions She has BiPAP at home is mildly hypercapnic Allergies tramadol Allergy (Verified 11/10/16 09:03) Shortness of breath morphine Adverse Reaction (Verified 11/08/12 17:31) stops heart OPIOID ANALGESICS Allergy (Uncoded 11/10/16 09:04) Shortness of breath Home Medications: Ammonium Lactate [Samira-Hydrolac] 1 siva TP BID 11/10/16 Aspirin [Aspirin EC 325 MG] 325 mg PO DAILY 11/10/16 Carvedilol [Coreg] 25 mg PO BID 11/10/16 Cetirizine HCl [Zyrtec] 10 mg PO DAILYPRN PRN 11/10/16 Fluocinonide [Lidex] 1 siva TP BID 11/10/16 Fluticasone [Flonase 50mcg Nasal [place]] 2 sprays NS DAILY 11/10/16 Gabapentin [Neurontin] 300 mg PO BID 11/10/16 Levothyroxine [Synthroid] 88 mcg PO [id number] 11/10/16 Sitagliptin Phosphate [Januvia] 25 mg PO DAILYPRN PRN 11/10/16 Aspirin [Aspirin EC 81 MG] 81 mg PO DAILY 06/14/18 Diclofenac Sodium [Voltaren] 1 applic TOP BID 06/14/18 Doxepin HCl 25 mg PO BEDTIME 06/14/18 Isoniazid [Isoniazid*] 1 tab DAILY 06/14/18 Levofloxacin [Levaquin] 500 mg PO DAILY 06/14/18 Lisinopril [Zestril] 1 tab DAILY 06/14/18 Na Bicarb Tab [Sodium Bicarb 325 MG] 2 tab PO PRN PRN 06/14/18 Nitroglycerin 0.4 mg SL PRN PRN 06/14/18 Potassium Oral Tab [Klor-Con 10 mEq Tab] 10 meq PO DAILY 06/14/18 Prednisone [Sterapred Ds] 1 tab DAILY 06/14/18 Tramadol HCl [Ultram] 50 mg PO Q6HR 06/14/18 - Past Medical/Surgical History Diabetic: Yes -: CHF, diastolic dysfunction, end-stage -: Hypothyroidism -: Diabetes mellitus type 2, insulin-dependent -: COPD, end-stage disease, oxygen/steroid dependent -: HTN -: Urinary incontinence, chronic indwelling catheter -: Diabetic neuropathy -: Obstructive sleep apnea -: History aortic stenosis status post aortic valve replacement-bovine -: Tubal ligation -: Aortic valve replacement-bovine -: Pacemaker Psychosocial/ Personal History: Patient is bed bound. Patient has multiple family members. - Social History Smoking Status: Unknown if ever smoked Alcohol use: No CD- Drugs: No Caffeine use: Yes Place of Residence: Home Review of Systems is unable to be obtained Physical Examination Temp Pulse Resp BP Pulse Ox 98 F 95 H 15 167/64 H 100 06/15/18 03:45 06/15/18 06:00 06/15/18 06:00 06/15/18 06:00 06/15/18 06:00 General: Unresponsive Neck: Supple Respiratory: Clear to auscultation bilaterally Cardiovascular: No edema, Normal S1 S2 Gastrointestinal: Normal bowel sounds, Soft and benign Laboratory Data (last 24 hrs) 06/14/18 13:00: PT 11.1, INR 0.94, APTT 34.5 06/14/18 13:00: WBC 13.6 H, Hgb 9.8 L, Hct 33.0 L, Plt Count 234 06/14/18 13:00: Sodium 141, Potassium 5.6 H*, BUN 84 H, Creatinine 1.60 H, Glucose 136 H, Total Bilirubin 0.2, AST 11 L, ALT 9 L, Alkaline Phosphatase 49, Lipase 141 - Problems (1) Respiratory failure with hypoxia and hypercapnia Current Visit: Yes Status: Acute Plan: Patient is 69 years of age was in hospice care that was revoked and was admitted with the declining status hypoxemia intubated transferred here to the ICU she is hemodynamically stable unresponsive off propofol no evidence of sepsis patient was in renal failure which is improving no evidence of a stroke or a bleed on the head CT scan patient is currently on 30% oxygen cultures are pending continue to observe currently on vancomycin and meropenem pro calcitonin level is negative echocardiogram pending thyroid function tests is normal overall prognosis poor she has been declining steadily patient does have a BiPAP at home I am not sure whether she has been using it Qualifiers: Chronicity: acute on chronic Qualified Code(s): J96.21 - Acute and chronic respiratory failure with hypoxia; J96.22 - Acute and chronic respiratory failure with hypercapnia
[2018-06-15 08:57] LABS: Blood Morphology Comment NOT SEEN (NOT SEEN); Platelet Estimate ADEQ
[2018-06-15] MEDS ORDERED: ASPIRIN EC 81 MG TAB PO SCH (09:00)
[2018-06-15] MEDS ORDERED: PANTOPRAZOLE 40 MG INJ IVP SCH (09:00)
[2018-06-15] MEDS: ENOXAPARIN 30 MG/0.3 ML SQ SCH (11:06)
[2018-06-15] MEDS: NACHLORIDE 0.45% 1,000 ML IV SCH ×2 (11:06→21:47)
[2018-06-15] MEDS: Meropenem 1,000 MG in NA CHLORIDE 0.9% 100 ML IV SCH ×2 (11:07→20:30)
[2018-06-15] MEDS: THIAMINE 200 MG/2 ML INJ IVP SCH (11:07)
[2018-06-15] MEDS: ASPIRIN 81 MG CHEWABLE TABLET PO SCH (11:07)
[2018-06-15] MEDS: FAMOTIDINE 20 MG/2 ML VIAL IV SCH ×2 (11:07→22:30)
[2018-06-15] MEDS: INSULIN -REGULAR HUMAN 50 UNIT/0.5 ML ML SQ SCH ×4 (11:08→21:46)
--- NOTE | 2018-06-15 11:39 | P.PN ---
Subjective Date of Service: 06/15/18 Primary Care Provider: Dr. Blackwell([facility]); Pulm-Dr. Rivera; Card- Dr. Segal Chief Complaint: Respiratory failure Subjective: Other (Patient intubated and sedated.) Physical Examination - Vital Signs Temperature: 98 F Blood Pressure: 124/96 Pulse: 91 Respirations: 12 Pulse Ox (%): 99 - Physical Exam General: Other (Patient intubated and sedated. No significant change since yesterday ) HEENT: Atraumatic Neck: Supple, Other (In the trach tube in place.) Respiratory: Clear to auscultation bilaterally (Clear anteriorly), Crackles/ rales (To the bases bilateral) Cardiovascular: Normal pulses, Regular rate/rhythm Gastrointestinal: Normal bowel sounds, Soft and benign, Non-distended, Other ( Obese.) Musculoskeletal: No erythema, No tenderness, No warmth Integumentary: Other (Ulcer noted to the right buttocks. As per nurses.) Neurological: Other (Patient intubated and sedated. Cedillo catheter in place.) - Studies Laboratory Data (last 24 hrs) 06/14/18 13:00: PT 11.1, INR 0.94, APTT 34.5 06/14/18 13:00: WBC 13.6 H, Hgb 9.8 L, Hct 33.0 L, Plt Count 234 06/14/18 13:00: Sodium 141, Potassium 5.6 H*, BUN 84 H, Creatinine 1.60 H, Glucose 136 H, Total Bilirubin 0.2, AST 11 L, ALT 9 L, Alkaline Phosphatase 49, Lipase 141 Medications List Reviewed: Yes Assessment & Plan Discharge Plan: LTAC Plan to discharge in: 24 Hours Physician Review Additional Text: Impression: Acute encephalopathy likely toxic. Suspect sepsis with bacteremia likely related to UTI with chronic indwelling catheter verses chronic ulcer to the right buttocks region versus right upper lobe pneumonia/aspiration likely. So far blood cultures pending. Urine culture positive for Gram negative rods. Acute on chronic respiratory failure with noted hypoxia currently intubated with history of diastolic CHF, end-stage COPD, and obstructive sleep apnea. Acute COPD exacerbation with COPD, oxygen/steroid dependent, BiPAP dependent Acute on chronic CHF, diastolic dysfunction CAD History of the aortic stenosis status post history of aortic valve replacement- bovine Hypotension likely related to septic shock and acute on chronic respiratory failure requiring vasopressor therapy Hyperkalemia, resolved Acute on chronic renal disease, improved Anemia likely of chronic disease Diabetes mellitus type 2, insulin-dependent History of hypertension Hypothyroidism Urinary incontinence with chronic indwelling catheter with history of recurrent complicated UTIs Malnutrition, severe Right buttocks ulcer, chronic Obstructive sleep apnea likely with hypoventilation obesity syndrome Morbid obesity Failure to thrive recently on hospice Plan: Patient currently remains in ICU. Patient currently intubated and sedated. Patient remains stable. Case discussed at length with medical power of city attorney , pulmonology. Patient previously on hospice. This was revoked. Medical power of city attorney reports patient full code. Options addressed, in detail. Will pursue long-term acute care facility placement. web services manager consulted. Patient continue to be on IV antibiotic therapy to cover for possible bacteremia likely with complicated recurrent UTI with history of chronic indwelling catheter. So far urine culture shows Gram negative rods. Pharmacy to monitor and adjust medications appropriately. Patient also being covered with IV antibiotic therapy for possible right upper lobe pneumonia likely aspiration. Patient with acute on chronic COPD exacerbation with history of COPD requiring oxygen/steroid/BiPAP dependent. Patient also with history of chronic is diastolic CHF. Patient well-known to pulmonology. Will continue to wean off vasopressors. Will monitor hemoglobin closely. Renal function slightly improved. Nephrology consulted to further monitor. Patient with diabetes. Will continue sliding scale. IV fluids may need to be adjusted. Patient with hypothyroidism. Will start IV thyroid medication at half dose. Patient with right buttocks ulcer. Wound care will need to monitor and address. I will turn the service over to Dr. Spangler tomorrow. I will go over the plan of care with her. Time Spent Managing Pts Care (In Minutes): 55
[2018-06-15] MEDS ORDERED: SODIUM CHLORIDE 0.9% 10ML INJ IV PRN (11:42)
--- NOTE | 2018-06-15 15:28 | CON ---
Date of Consultation: 06/15/2018 Admitted to on 06/14/2018. I saw the patient on 06/15/2018. Reason For Consultation: Congestive heart failure, altered mental status . History Of Present Illness: Ms. Chaparro is a 78-year-old woman who has a history of congest denisse heart failure, prosthetic aortic valve replacement . She has a history of pacemaker, d iabetes, COPD, . Past Medical History: . Physical Examination: Chest: Revealed wheezing throughout Diagnostic Data: Impression And Plan: . YUE/LYNDA Voice ID: [id number] Report ID: [id number]
[2018-06-15] MEDS: LORazepam 2 MG/ML VIAL IV PRN ×2 (16:20→23:00)
[2018-06-15] MEDS: VANCOMYCIN 1.5 GM in NA CHLORIDE 0.9% 500 ML IVPB SCH (21:47)
--- NOTE | 2018-06-16 00:35 | EKG ---
Test Date: 2018-06-14 Test Time: 13:05:30 Disabilities Caregiver: AMANUEL MEASUREMENT RESULTS: Intervals: Rate: 83 MA: 238 QRSD: 124 QT: 370 QTc: 434 Gooding: P: 35 MA: 238 QRS: 47 T: 49 INTERPRETIVE STATEMENTS: Sinus rhythm with 1st degree AV block Right bundle branch block Abnormal ECG Compared to ECG 11/09/2016 21:16:11 Left-axis deviation no longer present Myocardial infarct finding no longer present Electronically Signed On 06-16-18 00:32:31 CDT by Ramesh Wilson
[2018-06-16] MEDS: METHYLPREDNISOLONE 125 MG INJ IV SCH ×4 (01:20→17:51)
--- NOTE | 2018-06-16 04:54 | CON ---
Date of Consultation: 06/15/2018 Chief Complaint: Acute kidney injury. History Of Present Illness: Acute kidney injury on chronic kidney disease. The patient has chronic kidney disease stage 3. Baseline creatinine level is 1.1. The patient developed acute kidney injury . She was found to have elevated creatinine up to 1.6, on previous occasion back in November 2016 cr eatinine was up to 1.82. The patient has nonoliguric urine output. Nephrology consultation was requ ested for elevated azotemia. BUN is ranging in 60s. Electrolytes during this admission were in stab le range. The patient was found to have hyperkalemia on arrival to the hospital, potassium was 5.6. There was no evidence of metabolic acidosis. Bicarbonate was 32, chloride 103, sodium 141, BUN was up to 84, and creatinine 1.6. The patient was admitted to ICU and was intubated for respiratory fail ure. Renal function has improved somewhat over the last 24 hours. BUN remains elevated up to 6. Th e patient has history of complicated congestive heart failure, COPD, diabetes, hypertension, aortic v alve replacement, hypothyroid, urinary incontinence, and chronic catheter. The patient was previousl y hospitalized on multiple occasions for COPD exacerbation and congestive heart failure as well as ac [place] kidney injury with cardiorenal syndrome. Over the past several months, the patient has been on h ospice. The patient was brought to the hospital because of generalized weakness and family decided t o change code status to full code. The patient was found to have hypoxemic respiratory failure and w as intubated. She was found to have severe hypotension. Blood pressure was 70/40. She was started on IV fluids for volume resuscitation. The patient was found to have hyperkalemia and lactic acid wa s within normal limits. Urinalysis showed leukocytosis. The patient is undergoing workup to rule ou t sepsis. She remains intubated in ICU. Review of Systems: Unobtainable because of the patient's condition. Past Medical History: Congestive heart failure, diastolic dysfunction, hypothyroid, diabetes mellitu s type 2 insulin dependent, COPD advanced with and steroid dependent, hypertension, urinar y incontinence, chronic indwelling catheter, diabetic neuropathy, obstructive sleep apnea, aortic keny nosis status post aortic valve replacement, tubal ligation, aortic valve replacement, and pacemaker. Social History: There is no history of tobacco, alcohol, or illicit drugs. Family History: Unobtainable. Physical Examination: General: The patient is intubated, ventilated. Eyes: Anicteric sclerae, no conjunctivitis. Neck: Supple. No bruits. Respiratory: Distant breath sounds bilaterally, no wheezing. Cardiovascular: S1, S2. Regular rate and rhythm. GI: Abdomen obese, soft, nontender. No rebound. No guarding. Musculoskeletal: No muscle soreness. No joint effusion. Skin: Warm and dry. No skin rashes. Neurological: Moving extremities. Cranial nerves intact. No tremor. Laboratory Data: Blood Work: PT 11.1, INR 0.94, PTT 34.5. WBC 13.6, hemoglobin 9.8, hematocrit 33, platelet count 234,000. Sodium 141, potassium 5.6, BUN 84, creatinine 1.6, glucose 136, total bilir ubin 0.2. Impression And Plan: 1.[id number] kidney injury with prerenal azotemia, cardiorenal syndrome in the setting of adva nced respiratory failure with chronic obstructive pulmonary disease, obstructive sleep apnea, and con gestive heart failure. Continue IV fluids for hydration. 2.Hyperkalemia. Monitor electrolytes closely, avoid nephrotoxic medication. 3.The patient will have kidney ultrasound to evaluate kidney size and echotexture. 4.Urinalysis will be done to screen for nephritis. Monitor proteinuria panel. The patient has Fole y catheter and it showed red blood cells and white blood cells. There is yeast present. Plan is to exchange Cedillo catheter and reevaluate for urinary tract infection. VANDANA/MODL Voice ID: [id number] Report ID: [id number]
[2018-06-16 05:09] LABS: Absolute Lymphocytes (CBC) 0.6 K/uL (0.7-4.9); Absolute Monocytes 0.2 K/uL (0.1-1.3); Absolute Neutrophil 6.7 K/uL (1.8-8.0); Hematocrit 27.7 % (36.0-45.0); Lymphocytes % 8.3 % (15.3-44.8); MCH 29.1 pg (27.0-35.0); MPV 9.4 fL (7.6-11.3); Monocytes % 3.3 % (3.3-12.3); RBC Red Blood Cell Count 3.11 M/uL (3.86-4.86)
[2018-06-16 05:28] LABS: Magnesium 2.2 mg/dL (1.8-2.4); Potassium 3.4 mmol/L (3.5-5.1)
[2018-06-16] MEDS: LEVOTHYROXINE SODIUM 100 MCG VIAL IV SCH (06:37)
[2018-06-16] MEDS: NACHLORIDE 0.45% 1,000 ML IV SCH (07:00)
[2018-06-16 07:01] VITALS: BMI 33.1
[2018-06-16] MEDS: ARFORMOTEROL TARTRATE 15 MCG/2 ML VIAL.NEB NEB SCH ×3 (08:00→20:11)
[2018-06-16] MEDS: ENOXAPARIN 30 MG/0.3 ML SQ SCH (08:32)
[2018-06-16] MEDS: INSULIN -REGULAR HUMAN 50 UNIT/0.5 ML ML SQ SCH ×4 (08:32→21:00)
[2018-06-16] MEDS: ASPIRIN 81 MG CHEWABLE TABLET PO SCH (08:32)
[2018-06-16] MEDS: THIAMINE 200 MG/2 ML INJ IVP SCH (08:32)
[2018-06-16] MEDS: Meropenem 1,000 MG in NA CHLORIDE 0.9% 100 ML IV SCH ×2 (08:34→21:45)
--- NOTE | 2018-06-16 08:34 | P.PN ---
Subjective Date of Service: 06/16/18 Primary Care Provider: Dr. Blackwell([facility] Pulm-Dr. Rivera; Card- Dr. Segal Chief Complaint: Respiratory failure Subjective: Improving (Patient is more alert responsive cooperative hemodynamically stable) Review of Systems is unable to be obtained Physical Examination - Vital Signs Temperature: 97.5 F Blood Pressure: 136/34 Pulse: 68 Respirations: 16 Pulse Ox (%): 99 - Physical Exam General: Alert, Cooperative Respiratory: Clear to auscultation bilaterally Cardiovascular: No edema, Normal S1 S2 Gastrointestinal: Normal bowel sounds, Soft and benign - Studies Medications List Reviewed: Yes Assessment & Plan - Problems (Diagnosis) (1) Respiratory failure with hypoxia and hypercapnia Onset Date: 06/15/18 Current Visit: Yes Status: Acute Plan: Patient is improving plan to wean and extubate labs reviewed blood cultures report to pending continue with antibiotics for now E. coli in the urine is multi resistant sensitive to meropenem Gram positive Wynn and blood cultures await ID presume skin contaminant only 1 set is positive patient is only on 30% oxygen she does have decubitus ulcers Qualifiers: Chronicity: acute on chronic Qualified Code(s): J96.21 - Acute and chronic respiratory failure with hypoxia; J96.22 - Acute and chronic respiratory failure with hypercapnia Physician Review Additional Text: Impression: Acute encephalopathy likely toxic. Suspect sepsis with bacteremia likely related to UTI with chronic indwelling catheter verses chronic ulcer to the right buttocks region versus right upper lobe pneumonia/aspiration likely. So far blood cultures pending. Urine culture positive for Gram negative rods. Acute on chronic respiratory failure with noted hypoxia currently intubated with history of diastolic CHF, end-stage COPD, and obstructive sleep apnea. Acute COPD exacerbation with COPD, oxygen/steroid dependent, BiPAP dependent Acute on chronic CHF, diastolic dysfunction CAD History of the aortic stenosis status post history of aortic valve replacement- bovine Hypotension likely related to septic shock and acute on chronic respiratory failure requiring vasopressor therapy Hyperkalemia, resolved Acute on chronic renal disease, improved Anemia likely of chronic disease Diabetes mellitus type 2, insulin-dependent History of hypertension Hypothyroidism Urinary incontinence with chronic indwelling catheter with history of recurrent complicated UTIs Malnutrition, severe Right buttocks ulcer, chronic Obstructive sleep apnea likely with hypoventilation obesity syndrome Morbid obesity Failure to thrive recently on hospice Plan: Patient currently remains in ICU. Patient currently intubated and sedated. Patient remains stable. Case discussed at length with medical power of ip technology transactions attorney , pulmonology. Patient previously on hospice. This was revoked. Medical power of ip technology transactions attorney reports patient full code. Options addressed, in detail. Will pursue long-term acute care facility placement. deputy sheriff court services consulted. Patient continue to be on IV antibiotic therapy to cover for possible bacteremia likely with complicated recurrent UTI with history of chronic indwelling catheter. So far urine culture shows Gram negative rods. Pharmacy to monitor and adjust medications appropriately. Patient also being covered with IV antibiotic therapy for possible right upper lobe pneumonia likely aspiration. Patient with acute on chronic COPD exacerbation with history of COPD requiring oxygen/steroid/BiPAP dependent. Patient also with history of chronic is diastolic CHF. Patient well-known to pulmonology. Will continue to wean off vasopressors. Will monitor hemoglobin closely. Renal function slightly improved. Nephrology consulted to further monitor. Patient with diabetes. Will continue sliding scale. IV fluids may need to be adjusted. Patient with hypothyroidism. Will start IV thyroid medication at half dose. Patient with right buttocks ulcer. Wound care will need to monitor and address. I will turn the service over to Dr. Spangler tomorrow. I will go over the plan of care with her.
--- NOTE | 2018-06-16 08:59 | ECHO ---
HEIGHT: 5 ft 5 in WEIGHT: 199 lb 0 oz DATE OF STUDY: 06/15/[address]: Eduar Lewis DO 2-DIMENSIONAL: YES M.MODE: YES DOPPLER: YES COLOR FLOW: YES TDS: YES PORTABLE: YES DEFINITY: NO BUBBLE STUDY: NO DIAGNOSIS: SHORTNESS OF BREATH, ACUTE CHRONIC RESPIRATORY FAILURE, HISTORY OF AORTIC VALVE AND CORONARY ARTERY DISEASE CARDIAC HISTORY: CATHERIZATION: NO SURGERY: NO PROSTHETIC VALVE: NO PACEMAKER: YES MEASUREMENTS (cm) DIASTOLIC (NORMALS) SYSTOLIC (NORMALS) IVSd 1.1 (0.6-1.2) LA Diam 3.5 (1.9-4.0) LVEF 58% LVIDd 3.6 (3.5-5.7) LVIDs 2.5 (2.0-3.5) %FS 30% LVPWd 1.1 (0.6-1.2) Ao Diam 2.4 (2.0-3.7) 2 DIMENSIONAL ASSESSMENT: RIGHT ATRIUM: NORMAL LEFT ATRIUM: NORMAL RIGHT VENTRICLE: NORMAL LEFT VENTRICLE: NORMAL TRICUSPID VALVE: NORMAL MITRAL VALVE: MITRAL ANNULAR CALCIFICATION PULMONIC VALVE: NORMAL AORTIC VALVE: NORMAL PERICARDIAL EFFUSION: NONE AORTIC ROOT: NORMAL LEFT VENTRICULAR WALL MOTION: NORMAL DOPPLER/COLOR FLOW: MILD TRICUSPID REGURGITATION. COMMENTS: MILD TRICUSPID REGURGITATION. MITRAL ANNULAR CALCIFICATION. NORMAL LEFT VENTRICULAR EJECTION FRACTION AND SIZE. AORTIC VALVE NORMAL. NO EFFUSION. TECHNOLOGIST: Padilla COMBS
[2018-06-16] MEDS ORDERED: POTASSIUM 25 MEQ EFFERV TAB PO ONE (10:01)
[2018-06-16] MEDS: FAMOTIDINE 20 MG/2 ML VIAL IV SCH ×2 (10:22→21:45)
[2018-06-16] MEDS ORDERED: NACHLORIDE 0.45% 1,000 ML IV SCH (11:00)
[2018-06-16] MEDS ORDERED: POTASSIUM CL 40 MEQ in NA CHLORIDE 0.9% 500 ML IV SCH (11:00)
[2018-06-16] MEDS ORDERED: VITAL HP 1,000 ML BOT RTH SCH (13:00)
[2018-06-16] MEDS: LORazepam 2 MG/ML VIAL IV PRN (15:46)
--- NOTE | 2018-06-16 15:57 | PN ---
Date of Progress Note: 06/16/2018 Subjective: The patient is seen and examined. Chart reviewed, and case discussed with RN and Dr. Rocky rodríguez. The patient is awake and alert, likely to be extubated today. No family at the bedside. Review of Systems: Unable to obtain due to the patient's medical condition. No acute events mentioned overnight by nurs ing staff. Medications: List reviewed. Code Status: Full code. Physical Examination: Vital Signs: Temperature 97.5; heart rate 68; blood pressure 136/34; respirations 16; O2 of 99% via ET tube, 30% FiO2. General: Awake, alert, intubated, non-sedated. CV: S1 and S2. No murmurs. Peripheral pulses present. Respiratory: Diminished breath sounds bilaterally. No wheezing or stridor. Gastrointestinal: Abdomen is soft, nondistended, nontender. Positive bowel sounds. Extremities: No clubbing, cyanosis, or edema. Neurologic: Nonfocal. The patient moves all 4 extremities. Opens eyes spontaneously. ET tube in p lace. Laboratory Data: Sodium 143, potassium 3.4, chloride 108, CO2 of 25, BUN 67, creatinine 0.9, glucose 201, calcium 8.7, magnesium 2.2. WBC 7.5, H and H of 9.1 and 27.7, platelets 198, neutrophils 88%. Urine culture growing out E. coli; multi-drug resistant; sensitive to Zosyn, meropenem, cefepime. B lood cultures, no growth to date. Sputum culture, normal joseph. Wound culture from right buttock sh ows mixed joseph and gram-negative rods. ID and sensitivity pending. Assessment: A 78-year-old female with: 1.Acute metabolic encephalopathy, likely toxic, secondary to sepsis with bacteremia and urinary trac t infection. The patient does have a chronic indwelling catheter, also to the right buttock, and pos sible right upper lobe aspiration. Blood culture is pending. Urine culture positive for Escherichia coli, multi-drug resistant. Continue with meropenem. Follow up on blood culture and sputum culture . Wound culture also growing gram-negative rods. 2.Pjwkq-ot-lyowqvk respiratory failure with hypoxia, currently intubated. The patient is awake and alert, will likely be extubated today. Likely secondary to diastolic congestive heart failure, end-s tage chronic obstructive pulmonary disease, and sleep apnea. 3.Acute chronic obstructive pulmonary disease exacerbation. The patient is oxygen dependent and BiP AP dependent. 4.Uqhke-mn-gygqqta diastolic heart failure. We will continue with diuresis. Monitor I's and O's. Fluid restriction. 5.Coronary artery disease. 6.Hypokalemia. We will replace and monitor. 7.History of aortic stenosis, status post aortic valve replacement, bovine. 8.Hypotension, likely secondary to septic shock, requiring vasopressor therapy, now off. 9.Eyuly-dm-utkgqid kidney disease, improving. We will continue to monitor creatinine. 10.Anemia of chronic disease. Monitor hemoglobin and hematocrit, transfuse if needed. 11.Diabetes mellitus type 2, insulin dependent. We will continue sliding scale insulin. The patien t does have hyperglycemia. 12.Essential hypertension, was hypotensive. 13.Hypothyroidism. Continue medication. 14.Urinary incontinence with chronic indwelling catheter with recurrent complicated urinary tract in fections. 15.Severe malnutrition. 16.Obesity, BMI 33. 17.Obstructive sleep apnea, uses BiPAP. 18.Failure to thrive, recently on hospice, which was revoked. Plan: Extubate today. The patient will likely need LTAC. Family not interested in hospice at this time. We will contact them for further. Continue monitoring in ICU setting. /LYNDA Voice ID: [id number] Report ID: [id number]
[2018-06-16] MEDS: VANCOMYCIN 1.5 GM in NA CHLORIDE 0.9% 500 ML IVPB SCH (21:00)
[2018-06-16 22:54] VITALS: O2SAT 100
[2018-06-17] MEDS: METHYLPREDNISOLONE 125 MG INJ IV SCH ×3 (01:00→11:38)
--- NOTE | 2018-06-17 01:41 | PN ---
Date of Progress Note: 06/16/2018 Subjective: The patient doing good. No event. Plan for extubation today. Physical Examination: Vital Signs: When I saw the patient, blood pressure 136/34, pulse of 88. Chest: Clear to auscultation. Heart: S1, S2. Systolic murmur. Abdomen: Soft, nontender. Extremities: No edema. Neuro: The patient moves 4 extremities continuously. Laboratory Data: WBC 7.5, H and H 9.1/27.7, platelets of 198. Sodium 143, potassium 3.4, bicarb 25, BUN 67, creatinine 0.9, calcium 8.7, magnesium 2.2. Current Medications: 1.Meropenem. 2.Aspirin. 3.Vancomycin. 4.Lovenox. 5.Haloperidol. 6.Pepcid. 7.Levothyroxine. 8.IV fluid. We will decrease it to 50 per hour. Assessment And Plan: 1.Acute kidney injury, recovered, resolved. 2.Hypokalemia. We will supplement. 3.Respiratory failure. We will follow up with Pulmonary. Plan for extubation. 4.Congestive heart failure. We will continue diuresis to establish better volume control and to est ablish better respiratory status. SERA Voice ID: [id number] Report ID: [id number]
[2018-06-17] MEDS: LEVOTHYROXINE SODIUM 100 MCG VIAL IV SCH (05:00)
[2018-06-17] MEDS: LORazepam 2 MG/ML VIAL IV PRN (05:01)
[2018-06-17 05:06] LABS: Absolute Lymphocytes (CBC) 0.5 K/uL (0.7-4.9); Absolute Monocytes 0.3 K/uL (0.1-1.3); Absolute Neutrophil 6.7 K/uL (1.8-8.0); Hematocrit 29.3 % (36.0-45.0); Lymphocytes % 6.2 % (15.3-44.8); MCH 28.8 pg (27.0-35.0); MCV 89.8 fL (80-100); MPV 9.3 fL (7.6-11.3); Monocytes % 3.4 % (3.3-12.3); RBC Red Blood Cell Count 3.26 M/uL (3.86-4.86)
[2018-06-17 05:20] LABS: Magnesium 2.3 mg/dL (1.8-2.4); Potassium 4.5 mmol/L (3.5-5.1)
[2018-06-17] MEDS: ARFORMOTEROL TARTRATE 15 MCG/2 ML VIAL.NEB NEB SCH (07:41)
[2018-06-17] MEDS: ASPIRIN 81 MG CHEWABLE TABLET PO SCH (07:50)
[2018-06-17] MEDS: ENOXAPARIN 30 MG/0.3 ML SQ SCH (07:50)
[2018-06-17] MEDS: INSULIN -REGULAR HUMAN 50 UNIT/0.5 ML ML SQ SCH ×2 (07:50→11:30)
[2018-06-17] MEDS: FAMOTIDINE 20 MG/2 ML VIAL IV SCH (07:50)
[2018-06-17] MEDS: THIAMINE 200 MG/2 ML INJ IVP SCH (07:51)
[2018-06-17] MEDS: Meropenem 1,000 MG in NA CHLORIDE 0.9% 100 ML IV SCH (07:54)
[2018-06-17 10:03] LABS: Arterial Blood Carboxyhemoglob 1.6 % (0-1.5); Blood Gas Oxyhemoglobin 95.2 % (94-97); Blood O2 Saturation 97.4 % (92-98.5)
[2018-06-17] MEDS ORDERED: INSULIN -REGULAR HUMAN 50 UNIT/0.5 ML ML SQ SCH (11:31)
[2018-06-17] MEDS ORDERED: FUROSEMIDE 40 MG/4 ML VIAL IV ONE (12:41)
[2018-06-17 13:14] VITALS: BP 128/39
[2018-06-17 14:52] VITALS: TEMP 97.8
--- NOTE | 2018-06-17 16:59 | PN ---
Date of Progress Note: 06/17/2018 Subjective: The patient is still intubated, however, does open eyes to name, not as responsive today and appears weaker. Weaning trials again today. Review of Systems: Limited due to patient's medical condition. Medications: List reviewed. Objective: Vital Signs: Temperature 98, heart rate 64, blood pressure 155/65, respirations 12, O2 1 00%, on ET tube, 24% FiO2. General: Intubated, non-sedated. Does wake up to name. Does not appear to be in significant distre ss. CV: S1, S2. Peripheral pulses present. Respiratory: Diminished breath sounds. No wheezing. The patient has some poor respiratory effort. Gastrointestinal: Abdomen is soft, nondistended. Positive bowel sounds. Extremities: No clubbing, cyanosis. The patient does have some peripheral edema. Neuro: Moves all 4 extremities. Opens eyes to name. ET tube in place. Laboratory Data: Sodium 141, potassium 4.5, chloride 108, CO2 24, BUN 79, creatinine 1.3, glucose 27 4, calcium 8.8, magnesium 2.3. ABG shows pH 7.36, pCO2 38, PO2 99, bicarb 21. WBC 7.4, H and H 9.4, 29.3, platelets 207, neutrophils 90%. Urine culture growing out E. coli. Wound culture from the ri t buttock also growing out E. coli, sensitive to cefepime. Blood cultures, no growth to date, does show some coagulase-negative Staph. Assessment And Plan: A 78-year-old female with: 1.Acute metabolic encephalopathy, toxic, secondary to sepsis with urinary tract infection and wound infection. 2.Acute on chronic respiratory failure with hypoxia, currently on mechanical ventilation. Difficult to wean. We will continue weaning trials today. Appreciate Dr. Rivera's input. Likely secondary to diastolic congestive heart failure, chronic obstructive pulmonary disease that is end-stage, slee p apnea. 3.Acute chronic obstructive pulmonary disease exacerbation. We will continue with nebulizer treatme nts. The patient currently on mechanical ventilation. 4.Acute on chronic diastolic heart failure. Continue diuresis. Monitor I's and O's. Continue with sodium and fluid restriction. 5.Urinary tract infection secondary to Escherichia coli, multidrug resistant. We will switch over t o cefepime. 6.Wound on right buttock. Also growing out Escherichia coli. We will continue with cefepime. 7.Coronary artery disease, circle artery and circle heart without angina. 8.Hypokalemia. Replace and monitor. 9.History of aortic stenosis status post aortic valve replacement, bovine. 10.Hypotension, secondary to septic shock, now off vasopressors. 11.Acute on chronic kidney disease. Creatinine is improving. We will continue to monitor. 12.Anemia of chronic disease. We will monitor hemoglobin and hematocrit, transfuse as needed. 13.Diabetes mellitus type 2, insulin dependent, with hyperglycemia. The patient is on tube feeds. We will adjust sliding scale and add long-acting insulin if needed. 14.Essential hypertension, was hypotensive. 15.Hypothyroidism. 16.Chronic indwelling urinary catheter. 17.Severe malnutrition, on tube feeds. 18.Obesity, BMI 33. 19.Obstructive sleep apnea, does use a BiPAP at home. 20.Failure to thrive. Was recently on hospice, which was revoked. Plan: We will discuss with family to extubate as we continue weaning trials. Plan is for [place]. Family not interested in hospice at this time. /LYNDA Voice ID: [id number] Report ID: [id number]
--- NOTE | 2018-06-17 18:39 | PN ---
Date of Progress Note: 06/17/2018 Subjective: The patient is doing the same. Still on vent, fail on weaning yesterday. Physical Examination: Vital Signs: When I saw the patient, blood pressure 155/65, pulse of 64. Chest: Faint crackles on the left base. Heart: S1, S2, regular. Abdomen: Soft, nontender. Extremities: Trace edema. Laboratory Data: H and H 9.4/29.3. Sodium 141, potassium 4.5, bicarb 24, BUN 79, creatinine rise to 1.3, calcium 8.8, magnesium 2.3. Chest x-ray, congestion. Current Medications: The patient on its include; 1.Cefepime. 2.Vancomycin. 3.Aspirin. 4.Lovenox. 5.Tylenol. 6.Lasix has been giving yesterday. 7.Pepcid. Assessment And Plan: 1.Acute kidney injury secondary to cardiorenal poor perfusion, acute tubular necrosis, slightly on t he wet side. I am going to give the dose of Lasix today. We will keep the limited intravenous fluid . 2.Hypertension, controlled. We will utilize the blood pressure for establishing better volume contr ol. I am going to go ahead and discontinue the intravenous fluid for the time being. 3.Metabolic encephalopathy secondary to sepsis and bacteremia, continue supportive care. 4.Coronary artery disease, stable. 5.Respiratory failure, possible chronic obstructive pulmonary disease exacerbation/some pulmonary edema. We will diurese the patient and we will follow up. ESPINOZA/LYNDA Voice ID: [id number] Report ID: [id number]
[2018-06-17] MEDS ORDERED: CEFEPIME/SWI 1gm 1 GM/10 ML SYR IV SCH (21:00)
[2018-06-18] MEDS ORDERED: VANCOMYCIN 1.5 GM in NA CHLORIDE 0.9% 500 ML IVPB SCH (10:00)
--- NOTE | 2018-06-18 15:35 | DS ---
Date of Discharge: 06/17/2018 Consultants: Dr. Rivera with Pulmonology, Dr. Rendon with Nephrology, Dr. Wilson with Cardiolog y. Admitting Diagnoses: 1.Acute metabolic encephalopathy. 2.Sepsis. 3.Urinary tract infection. 4.Acute on chronic respiratory failure with hypoxia. 5.Acute chronic obstructive pulmonary disease exacerbation. 6.Acute on chronic congestive heart failure, diastolic dysfunction. 7.Coronary artery disease. 8.History of aortic stenosis status post bioprosthetic valve replacement. 9.Hypotension secondary to possible septic shock. 10.Hyperkalemia. 11.Acute on chronic kidney disease. 12.Anemia of chronic disease. 13.Diabetes mellitus type 2, insulin dependent with hyperglycemia. 14.Essential hypertension. 15.Hypothyroidism. 16.Urinary incontinence with chronic indwelling catheter with recurrent complicated urinary tract in fections. 17.Severe malnutrition. 18.Right buttock ulcer, chronic. 19.Chronic obstructive pulmonary disease. 20.Obstructive sleep apnea with hypoventilation obesity syndrome. 21.Morbid obesity. 22.Failure to thrive, recently on hospice. Discharge Diagnoses: 1.Acute metabolic encephalopathy, likely toxic. 2.Sepsis. 3.Urinary tract infection secondary to Escherichia coli, multidrug resistant. 4.Acute on chronic respiratory failure with hypoxia, on mechanical ventilation, unable to be weaned. 5.Acute chronic obstructive pulmonary disease exacerbation. 6.Acute on chronic diastolic heart failure. 7.Coronary artery disease. 8.Hypokalemia, replaced. 9.History of aortic stenosis status post bioprosthetic valve replacement. 10.Hypotension secondary to septic shock, improved, off vasopressors. 11.Acute on chronic kidney disease. 12.Anemia of chronic disease. 13.Diabetes mellitus type 2, insulin dependent with hyperglycemia. 14.Essential hypertension, currently hypotensive to normotensive. 15.Hypothyroidism. 16.Urinary tract infection with chronic indwelling catheter with recurrent complicated urinary tract infections. 17.Severe mitral malnutrition. 18.Obesity, body mass index 33. 19.Obstructive sleep apnea. 20.Failure to thrive. Hospital Course: The patient is a 78-year-old female, who has been on hospice for some period of jaida e, who has revoked hospice multiple times, comes in with altered mental status. The patient was foun d to be hypoxic. She was admitted to the ICU. The patient had revoked her hospice and told the nurs e that she wished to be full code. Family agreed with her. The patient had to be intubated, was hyp otensive with septic shock and sepsis. The patient was started on IV antibiotics and pressors. The patient did respond and was able to be weaned off vasopressors. She was found to be septic secondary to multi-drug resistant E coli growing in the urine as well as right buttock wound. The patient was seen by Cardiology, Dr. Wilson as well as Dr. Rivera for vent management with Pulmonology. The p hemant was also seen by Dr. Rendon for her acute on chronic kidney disease. Echocardiogram was don e, which showed EF of 58%. The patient was difficult to wean off ventilator. Family including medic al power of city attorney did not wish to withdraw care. They wanted to respect the patient's wishes as s he had revoked hospice and wanted to be full code and "walk out of the hospital. The patient was the n referred to LTAC to [facility] due to difficulty weaning, and the patient will need long-term IV a ntibiotics as well. The patient was then transferred to [facility] to be weaned off ventilator and to finish off a course of IV antibiotics. The patient will continue on cefepime 1 g q.12 hours and v ancomycin 1.5 g 36 hours for minimum of 2 weeks. The patient to have repeat wound cultures from the right buttock wound after antibiotics are completed and repeat urine culture. Followup: The patient to follow up with primary care physician in 1-2 weeks. Follow up with pulmono logist, Dr. Rivera in 2-3 weeks. Follow up with Cardiology, Dr. wilson per his recommendation. Return to ER for worsening condition. Follow up with dining services manager, Dr. Rendon in 2 weeks. Overall , the patient's prognosis is very poor, however, at this time remains full code. She has revoked hos pice at this time. Physical Examination: For physical exam findings, please see progress note dictated on day of discharge. /LYNDA Voice ID: [id number] Report ID: [id number]
--- NOTE | 2018-06-20 14:04 | CON ---
Date of Consultation: 06/15/2018 The patient was admitted to Dr. Lewis to the ICU on 06/14/2018. The patient was seen on 06/15/2018. Reason For Consultation: Congestive heart failure. History Of Present Illness: Ms. Chaparro is a 78-year-old [place] woman who has a history of con gestive heart failure, aortic stenosis status post bioprosthetic aortic valve, COPD, diabetes, hypert ension, and hypothyroidism. She also has a history of pacemaker placement and a neuropathy. Came in with altered mental status, was found to have a combination of COPD and congestive heart failure wit h exacerbation. She was hypoxic when she came in with a pO2 of 67, pCO2 of 30, and pH of 7.46. Has chronic right bundle-branch block, elevated BNP and negative troponin. Hemoglobin was 9.1. By the t kelvin I saw her, she had an echocardiogram that was actually normal and a chest x-ray showed possible p neumonia. The patient has already been on vancomycin. Past Medical History: As stated above. Allergies: INCLUDE TRAMADOL AND MORPHINE. Review of Systems: Negative. Social History: Negative. Family History: Noncontributory. Medications: At home include aspirin, Coreg, insulin, Synthroid, Januvia, Zestril, and prednisone. Physical Examination: Vital Signs: She had a sinus rhythm. No acute distress. HEENT: Negative. Neck: Supple with no bruit. Chest: Revealed diffuse wheezing on expiration. No rales. Cardiac: Exam reveals regular rhythm and rate with an S4 gallop, and a tricuspid regurgitation murmu r. Abdomen: Benign. Extremities: Revealed trace edema. Diagnostic Data: As stated above. Impression And Plan: 1.Chronic obstructive pulmonary disease exacerbation. 2.Acute exacerbation of chronic diastolic congestive heart failure. 3.Status post prosthetic aortic valve that is bioprosthetic. Normal by echo with normal ejection fr action. 4.Diabetes. 5.Hypertension. 6.Hypothyroidism. 7.Neuropathy. 8.Status post pacemaker. 9.Possible pneumonia on antibiotics. She has already had an echocardiogram that was normal. I have no plan to do any more cardiac workup on her at this point. I agree with her present regimen. I wi ll follow her along with Dr. Lewis. YUE/LYNDA Voice ID: [id number] Report ID: [id number]
== END 2018-06-17 14:20 | DRG 698 ==
LOC: ER 12:39 → ERHOLD 15:22 → 3RD-ICU 06-15 02:39
PROVIDERS: ADMIT Family Medicine; ATTEND Family Medicine
PROC: 0BH17EZ Insertion of Endotracheal Airway into Trachea, Via Natural or Artificial Opening (ICD-10-PCS; principal; 2018-06-14)
PROC: 5A1945Z Respiratory Ventilation, 24-96 Consecutive Hours (ICD-10-PCS; 2018-06-14)
PROC: 3E033XZ Introduction of Vasopressor into Peripheral Vein, Percutaneous Approach (ICD-10-PCS; 2018-06-14)
PROC: 06HM33Z Insertion of Infusion Device into Right Femoral Vein, Percutaneous Approach (ICD-10-PCS; 2018-06-14)
PROC: 3E033XZ Introduction of Vasopressor into Peripheral Vein, Percutaneous Approach (ICD-10-PCS; 2018-06-14)
DX: T83.518A Infection and inflammatory reaction due to other urinary catheter, initial encounter (principal); A41.9 Sepsis, unspecified organism; J96.21 Acute and chronic respiratory failure with hypoxia; R65.21 Severe sepsis with septic shock; E43 Unspecified severe protein-calorie malnutrition; G92 Toxic encephalopathy; I50.33 Acute on chronic diastolic (congestive) heart failure; J96.22 Acute and chronic respiratory failure with hypercapnia; L89.314 Pressure ulcer of right buttock, stage 4; N39.0 Urinary tract infection, site not specified; I13.0 Hypertensive heart and chronic kidney disease with heart failure and stage 1 through stage 4 chronic kidney disease, or unspecified chronic kidney disease; E66.2 Morbid (severe) obesity with alveolar hypoventilation; Z99.11 Dependence on respirator [ventilator] status; J44.1 Chronic obstructive pulmonary disease with (acute) exacerbation; N18.9 Chronic kidney disease, unspecified; E11.22 Type 2 diabetes mellitus with diabetic chronic kidney disease; I25.10 Atherosclerotic heart disease of native coronary artery without angina pectoris; Z95.2 Presence of prosthetic heart valve; D63.1 Anemia in chronic kidney disease; E11.65 Type 2 diabetes mellitus with hyperglycemia; E03.9 Hypothyroidism, unspecified; R62.7 Adult failure to thrive; R32 Unspecified urinary incontinence; B96.20 Unspecified Escherichia coli [E. coli] as the cause of diseases classified elsewhere; Z16.24 Resistance to multiple antibiotics; E11.40 Type 2 diabetes mellitus with diabetic neuropathy, unspecified; E87.6 Hypokalemia; Z68.33 Body mass index [BMI] 33.0-33.9, adult; Z79.84 Long term (current) use of oral hypoglycemic drugs; Z79.82 Long term (current) use of aspirin; Z79.52 Long term (current) use of systemic steroids; Z99.81 Dependence on supplemental oxygen; Z95.0 Presence of cardiac pacemaker; Z88.5 Allergy status to narcotic agent; Z78.1 Physical restraint status; Z74.01 Bed confinement status
CPT/HCPCS: 36415; 70450; 71045; 80048; 80061; 80076; 80202; 81003; 81015; 82010; 82140; 82533; 82550; 82553; 82805; 82962; 83605; 83690; 83735; 84132; 84145; 84439; 84443; 84484; 85025; 85610; 85730; 87040; 87070; 87077; 87086; 87088; 87186; 87205; 93005; 93306; 94002; 94003; 99291; 99292; J0330; J0692; J1650; J1720; J2185; J2930; J3010; J3411; J7030; J7605